=== PATIENT | female | born 1995 | race Caucasian/White ===

== ENCOUNTER 2019-03-21 23:10 | Emergency (ER) | payer OTHER ==
[~2019-03-21] VITALS: Ht 165.1 cm; Wt 78.9 kg
[2019-03-21] MEDS ORDERED: PRENATAL + DHA1 EAC1 (23:24)
[2019-03-22] MEDS ORDERED: KEFLEX500 MG PO (04:21)
[2019-03-22] MEDS ORDERED: TERCONAZOLE45 GM VAG (04:21)
== END 2019-03-22 04:28 ==
LOC: ER 23:10
DX: O23.32 Infections of other parts of urinary tract in pregnancy, second trimester (principal); O46.8X2 Other antepartum hemorrhage, second trimester; B37.89 Other sites of candidiasis; O26.853 Spotting complicating pregnancy, third trimester

== ENCOUNTER 2019-06-17 20:19 | Outpatient (CLI) | payer OTHER ==
[~2019-06-17 20:19] MED LIST: KEFLEX500 MG PO; PRENATAL + DHA1 EAC1; TERCONAZOLE45 GM VAG
[2019-06-17] MEDS ORDERED: MACROBID 100 M100 MG PO (22:13)
== END 2019-06-18 19:01 | disposition home or self-care (01) ==
LOC: OBS/DEL 20:19
DX: O23.43 Unspecified infection of urinary tract in pregnancy, third trimester (principal)

== ENCOUNTER 2019-08-12 16:33 | Inpatient (IN) | payer OTHER ==
[~2019-08-12] VITALS: Ht 165.1 cm; Wt 78.5 kg
[~2019-08-12 16:33] MED LIST changes: +MACROBID 100 M100 MG PO
== END 2019-08-14 15:01 | DRG 798 ==
LOC: LDR 16:33 → OB/GYN 16:33
PROVIDERS: ADMIT Obstetrics & Gynecology
PROC: 10E0XZZ Delivery of Products of Conception, External Approach (ICD-10-PCS; principal; 2019-08-12)
PROC: 4A1HXCZ Monitoring of Products of Conception, Cardiac Rate, External Approach (ICD-10-PCS; 2019-08-12)
PROC: 4A033R1 Measurement of Arterial Saturation, Peripheral, Percutaneous Approach (ICD-10-PCS; 2019-08-12)
PROC: 0UB70ZZ Excision of Bilateral Fallopian Tubes, Open Approach (ICD-10-PCS; 2019-08-13)
DX: O80 Encounter for full-term uncomplicated delivery (principal); Z37.0 Single live birth; Z3A.37 37 weeks gestation of pregnancy; Z30.2 Encounter for sterilization